=== PATIENT | female | born 1965 | race Caucasian/White ===

== ENCOUNTER 2023-12-30 22:34 | Emergency (ER) | payer OTHER, SELFPAY ==
[2023-12-30 22:38] VITALS: BP 166/93; PULSE 96; RESP 15; TEMP 37.7; O2SAT 97
--- NOTE | 2023-12-30 22:44 | ED.URI ---
HPI - URI/Sore Throat General Chief Complaint: Upper Respiratory Infection Stated Complaint: ear pain, eye pain, fever/chills, bodyaches Time Seen by Provider: 12/30/23 22:42 Source: patient Mode of arrival: ambulatory Limitations: no limitations History of Present Illness HPI Narrative: Angela is a 58-year-old female patient presenting to the emergency room today with complaints of ear discomfort, eye discomfort, fever, chills, nasal congestion, sore throat,and body aches. She reports that symptoms started this morning. Was sent home from work today due to her feeling ill. She thought that it may be just allergies. Denies any chest pain or shortness of breath. MD elicited complaint: sore throat and nasal congestion Related Data Allergies Allergy/AdvReac Type Severity Reaction Status Date / Time Sulfa (Sulfonamide Allergy Hives Verified 12/30/23 23:24 Antibiotics) acetaminophen [From Vicodin] AdvReac Hallucinati Verified 12/30/23 23:24 ng hydrocodone [From Vicodin] AdvReac Hallucinati Verified 12/30/23 23:24 ng Review of Systems Review of Systems: Pertinent positives per HPI. Patient denies any rash, headache, visual changes, dizziness, shortness of breath, chest pain, palpitations, nausea, vomiting, diarrhea, constipation, abdominal pain, or any urinary issues. PMFSH Comments At the time of my signature, I reviewed and agree with the nursing past medical, surgical, social, and family history. There is no relevant family history pertinent to the patient complaint. Exam Narrative: General: Well-developed, well nourished, in no apparent distress Head: Normocephalic, atraumatic Eyes: Pupils equally round and reactive to light bilaterally, EOM intact, sclera and conjunctive clear, no discharge, lids normal Ears: TMs intact and congested, ear canals clear, no drainage, grossly hearing normal. Nose: Nares patent, clear nasal discharge, no inflammation, no sinus tenderness. Mouth: Oral pharynx without lesions or masses, good dentition, MMM. Neck: Supple, trachea midline, no enlargement of anterior or posterior cervical nodes, no thyroid masses or goiter palpable. Cardio: Regular rate and rhythm, s1 and s2 normal, no murmur appreciated. Resp: Clear to auscultation bilaterally, no rhonchi, rales, wheezing or rubs Course Course Emergency Course: Portions of this record may have been created with voice recognition software. Vital Signs Vital signs: Vital Signs Temperature 37.7 C H 12/30/23 22:38 Pulse Rate 96 12/30/23 22:38 Respiratory Rate 15 12/30/23 22:38 Blood Pressure 166/93 H 12/30/23 22:38 Pulse Oximetry 97 12/30/23 22:38 Oxygen Delivery Room Air 12/30/23 22:38 Temperature 37.7 C H 12/30/23 22:38 Pulse Rate 96 12/30/23 22:38 Respiratory Rate 15 12/30/23 22:38 Blood Pressure 166/93 H 12/30/23 22:38 Pulse Oximetry 98 12/30/23 23:20 Oxygen Delivery Room Air 12/30/23 23:20 Vital signs reviewed MDM - URI/Sore Throat MDM Narrative Medical decision making narrative: At the time of visit patient is resting comfortably on the exam table. Patient appears to be nontoxic. Labs: COVID, influenza, RSV, and strep test were performed . COVID testing was positive. Flu RSV and strep were all negative. Plan: I suspect patient has COVID. Supportive measures were discussed with the patient and they voiced understanding discharge instructions and agrees to treatment plan. Return precautions reviewed Differential Diagnosis Differential diagnosis: Likely upper respiratory infection, otitis media, sinusitis, viral infection, bronchitis, influenza, pharyngitis and other ( COVID) Lab Data Labs: Lab Results 12/30/23 Range/Units 22:53 Influenza A (RT-PCR) Negative (Negative) Influenza B (RT-PCR) Negative (Negative) RSV (RT-PCR) Negative (Negative) SARS-CoV-2 RNA (RT-PCR) Positive A (Negative) Group A Strep (PCR) Not detected (N
[2023-12-30 23:20] VITALS: O2SAT 98
[2023-12-30 23:23] LABS: Strep Group A RT-PCR NOT DETECTED (Negative)
[2023-12-30 23:34] LABS: Influenza A QL RT-PCR Negative (Negative); Influenza B QL RT-PCR Negative (Negative); RSV RNA, RT-PCR Negative (Negative); SARS-CoV-2 RNA PCR Positive (Negative)
== END 2023-12-30 23:53 | disposition home or self-care (01) ==
LOC: ANHED 22:58
PROVIDERS: Emergency Provider Nurse Practitioner Family
DX: U07.1 COVID-19 (principal)
CPT/HCPCS: 87637; 87651; 99283

== ENCOUNTER 2024-12-04 17:53 | Emergency (ER) | payer OTHER, SELFPAY ==
--- NOTE | ~2024-12-04 | XR_ITS ---
XR hand RT 2V Ordering provider: Alexandra Puga APRN History: . pain,fall . Comparison: None. FINDINGS: BONES: Possible fracture in the base of the distal phalanx of the right thumb.. Osteopenia of the bon es. JOINT SPACES: Osteoarthritic changes of the first carpometacarpal joint. Osteoarthritic changes of th e first metacarpophalangeal and interphalangeal joint. SOFT TISSUES: Normal. IMPRESSION: Possible fracture in the base of the distal phalanx of the right thumb. Follow-up advised. Reviewed, dictated and finalized at location A. IMPRESSION: Possible fracture in the base of the distal phalanx of the right thumb. Follow- up advised.
--- NOTE | ~2024-12-04 | XR_ITS ---
XR wrist RT min 3V Ordering provider: Alexandra Puga APRN History: . pain, fall . Comparison: None. FINDINGS: BONES: No acute fracture or dislocation. No definite scaphoid fracture. JOINT SPACES: Osteoarthritic changes of the first carpometacarpal joint. Narrowing of the radiocarpal joint. SOFT TISSUES: Normal. IMPRESSION: No acute osseous abnormality right wrist. Reviewed, dictated and finalized at location A.
--- OUTSIDE RECORDS SUMMARY | 2024-12-04 17:55 | XMS_ITS | Data Portability ---
Author Organization [place] - [facility] Eduardo as, [email or web address]G_[facility] Address [address] [address] Assessment Encounter Date Assessment Date Assessment LastModified by Organization Details LastModified Time 12/21/2023 12/21/2023 Patient presents to the clinic today for follow-up of her bilateral Dupuytren's disease. I discussed the natural history and progression of her signs and symptoms. Based on the patient's physical exam and history, she has Dupuytren's disease of her palms. There are no flexor contractures present on exam today, so we discussed that she should continue to monitor her symptoms until they worsen or if she starts to develop a flexion contracture. We discussed that her ring finger on the left hand may have a mild trigger finger starting, but it is not that symptomatic for her at this time. She will follow-up as needed. All questions and concerns were addressed at this time. Patient is indicated agreement and understanding. 1) There are no flexor contractures present on exam today, so we discussed that she should continue to monitor her symptoms until they worsen or if she starts to develop a flexion contracture. We discussed that her ring finger on the left hand may have a mild trigger finger starting, but it is not that symptomatic for her at this time. 2) She will follow-up as needed. Comments: Advised patient to avoid painful activities as much as possible and to contact the office regarding any problems or concerns. Patient will proceed with the treatment plan as discussed and will continue to monitor symptoms. I answered all questions and the patient seems to understand all of this. [email or web address] Not available 12/21/2023 16:54:40 10/15/2024 10/15/2024 LEFT KNEE ADVANCED OSTEOARTHRITIS-- Patient reports chronic left knee pain that worsened in September 2024 with no specific injury. Patient has had her right knee replaced in November 2022. Patient takes ibuprofen and Meloxicam for the pain. On exam, patient has ROM from 0-135, medial joint line tenderness, crepitation. X-rays of the left knee reveals advanced osteoarthritis worst in the patellofemoral compartment with complete loss of the articular cartilage resulting in rrnq-no-qymi contact. We discussed treatment options including surgical intervention and nonoperative management such as anti-inflammatori es, modification of activities, therapy, and injection. At this time, I will submit for authorization of Zilretta for the left knee. The patient agrees with the current treatment plan and will contact the office with any questions or concerns that may arise. Patient will follow-up after authorization for Zilretta. [email or web address] Not available 10/15/2024 17:50:34 10/17/2024 10/17/2024 LEFT KNEE DEGENERATIVE JOINT DISEASE / ZILRETTA INJECTION - The patient returns to the clinic remaining symptomatic. Today the patient received a Zilretta injection. The injection was tolerated well and there were no complications. Treatment options were reviewed with the patient at this time. The patient will continue a home exercise program focusing on quadriceps and hip abductor strengthening while avoiding aggravating activity. All the patient's questions were answered and they agree with the treatment plan. The patient will follow up as needed. [email or web address] Not available 10/16/2024 16:51:19 Plan of Treatment Reminders Order Date Submit Date Provider Last Modified By Organization Details Last Modified Time Details Appointments None recorded. Lab None recorded. Referral None recorded. Procedures None recorded. Surgeries None recorded. Imaging XR, knee, 3 view 2024 025 [email or web address] [facility] (Centralized Scheduling Use For All Imaging Orders), [address], [address], [place], [address], 16:23:26 XR, foot, 3 or more view 2024 025 [email or web address] [facility] (Centralized Scheduling Use For All Imaging Orders), [address], [address], [place], [address], 11:19:12 Medication Orders Zilretta 32 mg intra-art icular suspensio n,extende d release 2024 025 [email or web address] [id number], [address], [place], [address], 12:05:35 Patient TargetsNo targets recorded. Patient Instructions Encounter Date Encounter Id Patient Instructions Last Modified By Organization Details Last Modified Time 08/31/2023 [id number] Partial tear of LT ligament with improved symptoms. Will continue velcro wrist brace at night and with heavy activity only. Continue to use wrist and hand in brace for lifting, pushing or pulling. OT consult submitted. Cleared for work with restrictions noted in release letter. All questions answered. Contact the office for any other questions or concerns. Continue with activity as tolerated. Follow up 4 weeks for repeat exam and treatment evaluation. [email or web address] Not available 08/31/2023 11:11:17 07/04/2024 [id number] Non displaced proximal phalanx fracture of 5th toe. Continue foot wear modifications as tolerated. WBAT. Cleared for ADLs. RICE regimen reviewed. All questions answered. Contact the office for any other questions or concerns. Continue with activity as tolerated. Follow up 2-3 weeks prn for fracture f/u. [email or web address] Not available 07/04/2024 11:15:44 Reason for Referral None Reported. Results Created Date Observation Date Name Description Value Unit Range Abnormal Flag Note LastModifiedBy Organization Detail LastModifiedTime 07/04/19 25 07/04/2024 XR, foot, 3 or more view XR Foot 3V Right - InOffi ce HISTOR Y: M79.67 1,Pain in right foot PRIORS : None availa ble FINDIN GS: There is some first MTP joint space narrow ing and spurri ng. Enthes ophyte seen at the base of the fifth metata rsal. Small os perone um is presen t. Planta r assembler leather goods ior calcan eal enthes ophyte s are seen. IMPRES VON: As above. Electr onical ly Signed By: David mina MD, DABR on 025 9:46 AM ORDERI NG PROVID ER: MANNY Charles WSN: [id number] [email or web address] [facility] [address] , [place], [address], 07/04/2024 10:50:28 10/16/19 25 10/15/2024 XR, knee, 3 view XR Knee Left 3V - InOffi ce HISTOR Y: M25.56 2,Pain in left knee PRIORS : None availa ble FINDIN GS: Multip le osteop hytes are presen t. There is narrow ing of the patell ofemor al and medial compar tments . These findin gs are consis tent with osteoa rthrit is. There is a superi or patell ar enthes ophyte . Patell a bursal effusi on may be presen t. IMPRES VON: As above. Electr onical ly Signed By: David mina MD, DABR on 025 4:35 PM ORDERI NG PROVID ER: CONSTANTINE ALVARENGA WSN: [id number] [email or web address] [facility] [address] , [place], [address], 10/15/2024 17:41:40 Result Notes Documentation Provider Name and Address Organization Details Recorded Time Xr, Foot, 3 Or More View : XR Foot 3V Right - InOffice HISTORY: M79.671,Pain in right foot PRIORS: None available FINDINGS: There is some first MTP joint space narrowing and spurring. Enthesophyte seen at the base of the fifth metatarsal. Small os peroneum is present. Plantar posterior calcaneal enthesophytes are seen. IMPRESSION: As above. RING PROVIDER: MANNY FERNANDEZ WSN: [id number] Nadine Shaikh [facility], [place] - [facility] [place] 07/04/2024 10:50:29 Xr, Knee, 3 View : XR Knee Left 3V - InOffice HISTORY: M25.562,Pain in left knee PRIORS: None available FINDINGS: Multiple osteophytes are present. There is narrowing of the patellofemoral and medial compartments. These findings are consistent with osteoarthritis. There is a superior patellar enthesophyte. Patella bursal effusion may be present. IMPRESSION: As above. RING PROVIDER: SHELTON DANIELS WSN: [id number] [facility], [facility] 10/15/2024 17:41:40 Problems Name Problem SNOMED Code Status Onset Date Resolution Date Notes Provider Name and Address Organization Details Recorded Time Lumbar radiculop athy 932321053 Active 2021 GEORGE Chand [address] [place] [address], Suite [facility], [place], [place], [address] [place] [address], [facility] 2 14:21:54 Lumbar spondylol isthesis 741837259576 102 Active 2021 GEORGE Chand [address] [place] [address], Suite [facility], [place], [place], [address] [place] [address], [facility] 2 14:22:28 Idiopathi c periphera l neuropath y 32212330 Active 2021 GEORGE Chand [address] [place] [address], Suite [facility] [place] [address], [facility] 2 14:22:45 Osteoarth ritis of right knee joint 939502900403 100 Active 2022 Sy Noriega null, [facility] 3 12:27:46 Osteoarth ritis of right hip joint 396988180302 107 Active 2022 Sy Noriega null, [facility] 3 13:02:45 Pain of left wrist 581965672353 102 Active 2022 Manny Fernandez MD [address] [facility], [address] [place], [place], [address] [place] [address], [facility] - [facility] 3 15:33:01 Contusion of left wrist 241171862789 32375 Active 2022 Manny Fernandez MD [address] [facility], [address], [place], [address], [facility] 3 15:33:02 Sprain of left wrist 811045675461 97672 Active 2022 Manny Fernandez MD [address] [facility], [address], [place], [address], [facility] 3 15:33:04 Dupuytren 's disease of palm 716630843 Active 2023 RYLEY NEGRON PA-C [address] [facility], [address], [place], [address], [facility] 4 16:54:55 Pain in right foot 489884769054 107 Active 2024 Manny Fernandez MD [address] [place] [address], [address], [place], [address], [facility] 5 11:14:32 Fracture of phalanx of foot 51618359 Active 2024 Manny Fernandez MD [address] [place] [address], [address], [place], [address], [facility] 5 11:14:33 Problem Notes None recorded. Procedures Surgical History Date Name Laterality Status Provider Name and Address Organization Details Recorded Time 5 Zilretta steroid injection completed Joyce Mcneil [facility] 10/17/2024 11:35:27 3 MV - Steroid Injection Knee completed Sy Noriega [facility] 06/28/2022 12:39:32 2 Iris - Hand Trigger Finger Steroid Injection completed Olena Adams [facility] 09/03/2021 12:07:14 Imaging Results None recorded. Procedure Notes None recorded. Medical Equipment None Reported. Allergies Allergen ID Allergen Name Allergen Category Reaction Reaction Severity Criticality Documentation Date Start Date Code Code System Note Provider Name and Address Organization Details Recorded Time 797242 Substance with sulfonami de structure and antibacte rial mechanism of action (substanc e) medicatio n Not available Not available Not available 09/02/2021 31722 8003 SNOMED Sabrina ohara, [facility] 2 11:08:03 764718 acetamino phen / hydrocodo ne medicatio n Not available Not available Not available 09/02/2021 15333 2 RxNorm Sabrina ohara, [facility] 2 11:08:09 259288 Dilaudid medicatio n Not available Not available Not available 09/02/2021 04519 3 RxNorm Sabrina ohara, [facility] [place] 2 11:08:18 748470 morphine medicatio n nausea Not available Not available 04/27/2023 7052 RxNorm Not Available winton - External Data Service - prod 3 19:00:33 Medications Name Sig Start Date Stop Date Status Note LastModified by Organization Details LastModified Time fluoxetine 40 mg capsule TAKE 1 CAPSULE BY MOUTH EVERY DAY active Not Available Not Available No t Available lamotrigine 200 mg tablet TAKE 1 AND A HALF TABLETS BY MOUTH EVERY DAY active Not Available Not Available No t Available hydrocodone 5 mg-acetamino phen 325 mg tablet take 1-2 tablets po q 8 hours prn moderate to severe pain 2022 active Not Available Not Available Not Avai lable meloxicam 15 mg tablet TAKE 1 TABLET BY MOUTH EVERY DAY WITH A MEAL active Not Available Not Available No t Available promethazine 12.5 mg tablet TAKE 1 TABLET BY MOUTH EVERY 6 HOURS NEEDED FOR NAUSEA/ VOMITING active Not Available Not Available No t Available metoprolol succinate ER 100 mg tablet,exten ded release 24 hr TAKE 1 TABLET BY MOUTH EVERY DAY active Not Available Not Available No t Available prednisone 5 mg tablet TAKE 1 TABLET BY MOUTH EVERY DAY active Not Available Not Available No t Available hydrocodone 10 mg-acetamino phen 325 mg tablet TAKE 1 (ONE) TABLET EVERY FOUR TO SIX HOURS NEEDED active Not Available Not Available No t Available oxycodone-ac etaminophen 5 mg-325 mg tablet take 1 - 1.5 tablets po q 4-6 hours as needed for moderate to severe pain 2022 active Not Available Not Available Not Avai lable potassium chloride ER 20 mEq tablet,exten ded release(part /cryst) TAKE 1 TABLET BY MOUTH EVERY DAY active Not Available Not Available No t Available aspirin 325 mg tablet,delay ed release TAKE 1 TABLET BY MOUTH EVERY DAY DIRECTED FOR 14 DAYS active Not Available Not Available Not Available oxycodone-ac etaminophen 10 mg-325 mg tablet TAKE HALF - 1 TAB BY MOUTH EVERY 4-6 HOURS NEEDED FOR MODERATE TO SEVERE PAIN active Not Available Not Available Not Available hydrocodone 7.5 mg-acetamino phen 325 mg tablet TAKE 1 TABLET BY MOUTH EVERY 6 HOURS active Not Available Not Available No t Available dexamethason e 4 mg tablet TAKE 1 TABLET BY MOUTH EVERY 12 HOURS WITH FOOD active Not Available Not Available No t Available docusate sodium 100 mg capsule TAKE 1 CAPSULE BY MOUTH TWICE A DAY NEEDED active Not Available Not Available No t Available gabapentin 300 mg capsule TAKE 1 CAPSULE BY MOUTH TWICE A DAY DIRECTED FOR 7 DAYS active Not Available Not Available N ot Available methylpredni solone 4 mg tablets in a dose pack TAKE 6 TABLETS ON DAY 1 DIRECTED ON PACKAGE AND DECREASE BY 1 TAB EACH DAY FOR A TOTAL OF 6 DAYS active Not Available Not Available No t Available fluoxetine 20 mg capsule TAKE 1 CAPSULE BY MOUTH EVERY DAY active Not Available Not Available No t Available rosuvastatin 10 mg tablet TAKE 1 TABLET BY MOUTH EVERY DAY FOR 30 DAYS active Not Available Not Available No t Available Euflexxa 10 mg/mL (mw 2.4-3.6 million) intra-articu lar syringe Inject 2 mL by intra-artic ular route for 35 days. 2022 active Not Available Not Available Not Avai lable hydrochlorot hiazide 12.5 mg tablet TAKE 1 TABLET BY MOUTH EVERY DAY IN THE MORNING active Not Available Not Available No t Available Gelsyn-3 16.8 mg/2 mL intra-articu lar syringe Inject 2 mL by intra-artic ular route for 21 days. active Not Available Not Available No t Available Zilretta 32 mg intra-articu lar suspension,e xtended release Take 32 mg by intraarticu lar route. 2024 active Not Available Not Available Not Kandi labcan Kenalog-40 40 mg/mL suspension for injection Take 1 mL by injection route. 2021 active Not Available Not Available Not Avradha nichole Vitals Date Recorded Body height Body mass index (BMI) Body weight Provider Name and Address Organization Details Last Updated DateTime 10/15/2024 176 cm 34.9 kg/m2 654069 g Jenn Abdullahi [place] - [facility] [place] 10/15/2024 17:24:03 Social History Question Answer Notes LastModified by Organizat ion Details LastModified Time Have You Had A Fever And/or Symptoms Of A Lower Respiratory Illness (cough, Difficulty Breathing, Etc)? No [email or web address] Information not available 06/23/2022 Have You Had A COVID-19 Vaccine In The Last 7 Days? No [email or web address] Information not available 06/23/2022 Have You Had Any Of These Symptoms: Chills, Headache, Fatigue, Muscle Or Body Aches, Sore Throat, New Loss Of Taste Or Smell, Nausea Or Vomiting, Or Diarrhea? No [email or web address] Information not available 06/23/2022 In The Past 10 Days, Have You Been Told You May Have COVID-19 Or Have Been Tested For COVID-19? No [email or web address] Information not available 06/23/2022 0. Information Provided By : Patient [email or web address] Information not available 04/28/2023 1a) Does The Patient/Caregiver/F amily Report The PATIENT Having Any Of These NEW Symptoms Such As Cough? No [email or web address] Information not available 04/28/2023 1b) Does The Patient/Caregiver/F amily Report The PATIENT Having Any Of These NEW Symptoms Such As Diarrhea? No API-27 Information not available 04/28/2023 1c) Does The Patient/Caregiver/F amily Report The PATIENT Having Any Of These NEW Symptoms Such As Fever/chills? No API-27 Information not available 04/28/2023 1d) Does The Patient/Caregiver/F amily Report The PATIENT Having Any Of These NEW Symptoms Such As Nasal Congestion/Runny Nose? No API-27 Information not available 04/28/2023 1e) Does The Patient/Caregiver/F amily Report The PATIENT Having Any Of These NEW Symptoms Such As Respiratory Distress (acute)? No API-27 Information no t available 04/28/2023 1f) Does The Patient/Caregiver/F amily Report The PATIENT Having Any Of These NEW Symptoms Such As Rash? No API-27 Information not available 04/28/2023 1g) Does The Patient/Caregiver/F amily Report The PATIENT Having Any OTHER NEW Symptoms (list)? If No NEW Symptoms, Enter No No [email or web address] Information not available 04/28/2023 What Is Your Relationship Status? [email or web address] Information not available 08/14/2023 Sex: Female Functional Status None recorded. Mental Status None recorded. Family History Nothing Reported. Medical History Condition Response arthritis Y psychiatric illness Y high blood pressure Y Gynecological HistoryNo gynecological history recorded. Obstetrics History GPAL:G 0 P 0 0 0 0 Past Encounters Encounter ID Performer Location Encounter Start Date Encounter Closed Date Diagnosis/Indication Diagnosis SNOMED-CT Code Diagnosis ICD10 Code Diagnosis Note [id number] Arben Simmons MD [facility] [address] [place] [address] 09/02/2021 10:45:03 09/02/2021 12:27:29 Pain in right hand [id number] 47247 M79.641 Ganglion c yst of right hand 2985192197 21570 M67.411 [id number] Yuriy Elvie GREGG [facility] [address] [place] [address] 10/13/2021 11:22:13 10/13/2021 12:18:32 Lumbar radiculopathy 732650566 M54.16 I independlakshmi gentile reviewed the pertinent images today from the xray. Posterior / posterolat eral lumbar arthrodesi s at L2-5 using an allograft. Fixation was accomplish ed with pedicle screws and rods bilaterall y. Decompress francesco Laminectom y at L2, L3, L4, L5. Date of procedure: 10/07/2020 at [facility]. She complains of continued low back pain and poor balance. Continue PT for conditioni ng, gait training and balance. Follow up as needed. Lumbar spondylolisthesis 7903981529 40202 M43.16 I independlakshmi gentile reviewed the pertinent images today from the xray. Posterior / posterolat eral lumbar arthrodesi s at L2-5 using an allograft. Fixation was accomplish ed with pedicle screws and rods bilaterall y. Decompress francesco Laminectom y at L2, L3, L4, L5. Date of procedure: 10/07/2020 at [facility]. She complains of continued low back pain and poor balance. Continue PT for conditioni ng, gait training and balance. Follow up as needed. Idiopathic peripheral neuropathy 82093030 G60.9 [id number] Arben Simmons MD [facility] [address] [place] [address] 10/14/2021 11:12:40 10/14/2021 11:34:42 Pain in right hand 0699941197 61850 M79.641 Ganglion c yst of right hand 1185198456 76218 M67.996 [id number] Shelton Daniels MD [facility] [address] [facility] [place] [address] 06/28/2022 10:42:04 06/28/2022 12:24:55 Pain of right knee joint 0751637794 85759 M25.561 Pain of ri ght hip joint 6193981775 74995 M25.551 Osteoarthr itis of right knee joint 6751608504 89015 M17.11 Osteoarthr itis of right hip joint 0019150810 00694 M16.11 [id number] Arben Simmons MD [facility] [address] [place] [address] 06/23/2022 15:17:33 06/23/2022 15:54:38 Pain in right hand 1121013711 09114 M79.641 Ganglion c yst of right hand 6026120800 19588 M67.441 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 3922743761 2781972 M19.041 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 2823430689 99650 M20.021 [id number] Arben Simmons MD [facility] [address] [place] [address] 08/17/2022 16:05:33 08/17/2022 16:39:51 Pain in right hand 7876885478 54631 M79.641 Ganglion c yst of right hand 0255516655 78238 M67.441 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 9630194018 7144375 M19.041 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 3420541032 26280 M20.021 [id number] Shelton Daniels MD [facility] [address] [address] 10/04/2022 11:47:04 10/04/2022 12:47:02 Pain of right knee joint 4082864061 17458 M25.561 Osteoarthr itis of right knee joint 4083852187 18419 M17.11 [id number] Shelton Daniels MD [facility] [address] [address] 11/16/2022 13:48:05 11/16/2022 15:30:47 History of right total knee replacement 5527060965 649176 Z96.651 Pain of ri ght knee joint 2303954701 04881 M25.561 Osteoarthr itis of right knee joint 5819406811 25575 M17.11 [id number] Shelton Daniels MD [facility] [address] [place] [address] 12/16/2022 14:36:04 12/16/2022 15:42:18 History of right total knee replacement 0038781689 075835 Z96.651 Pain of ri ght knee joint 0297431009 32226 M25.561 Osteoarthr itis of right knee joint 3335918809 32328 M17.11 [id number] Shelton Daniels MD [facility] [address] [facility] [place] [address] 01/27/2023 14:23:43 01/27/2023 15:07:47 Pain of right knee joint 2387511331 70816 M25.561 History of right total knee replacement 1642898487 341980 Z96.651 Osteoarthr itis of right knee joint 7907016382 66042 M17.11 [id number] Shelton Daniels MD [facility] [address] [place] [address] 04/28/2023 10:18:02 04/28/2023 11:34:33 Osteoarthritis of right knee joint 3420586207 44636 M17.11 Pain of ri ght knee joint 2805858555 35040 M25.561 History of right total knee replacement 8152143953 488879 Z96.651 [id number] Manny Fernandez MD [facility] [address] [place] [address] 05/22/2023 14:43:20 05/22/2023 15:07:13 Pain of left wrist 2365598398 74090 M25.532 Contusion of left wrist 5450382585 0732804 S60.212A Sprain of left wrist 353 6979904 9136409 S63.522A [id number] Manny Fernandez MD [facility] [address] [facility] [place] [address] 05/25/2023 11:01:20 05/25/2023 11:09:53 Contusion of left wrist 1763204189 3211151 S60.212D Sprain of left wrist 708 3218595 6018724 S63.522D Pain of left wrist 20013 89713 42359 M25.532 [id number] Manny Fernandez MD [facility] [address] [facility] [place] [address] 07/13/2023 11:42:57 07/13/2023 12:04:30 Sprain of left wrist 1153729978 5799411 S63.522D Pain of left wrist 31871 04038 62755 M25.532 Contusion of left wrist 4222034593 3846041 S60.212D [id number] Manny Fernandez MD [facility] [address] [facility] [place] [address] 08/14/2023 11:03:55 08/14/2023 12:31:35 Sprain of left wrist 5113034971 6689868 S63.522D Pain of left wrist 16763 76324 17003 M25.532 Contusion of left wrist 7271436790 6798191 S60.212D [id number] Manny Fernandez MD [facility] [address] [facility] [place] [address] 08/31/2023 10:04:50 08/31/2023 10:30:57 Contusion of left wrist 8735543812 9017315 S60.212D Sprain of left wrist 762 3342748 3226341 S63.522D Pain of left wrist 97807 59362 50473 M25.532 [id number] Arben Simmons MD [facility] [address] [place] [address] 12/21/2023 09:37:20 12/21/2023 11:36:16 Dupuytren's disease of palm 261660333 M72.0 [id number] Manny Fernandez MD [facility] [address] [place] [address] 07/04/2024 09:31:01 07/04/2024 10:45:33 Pain in right foot [id number] 31484 M79.671 non displaced proximal phalanx fracture of 5th toe Fracture o f phalanx of foot [id number] S92.514A [id number] Shelton Daniels MD [facility] [address] [place] [address] 10/15/2024 16:45:53 10/15/2024 17:53:19 Pain of left knee region [id number] 70476 M25.562 Osteoarthr itis of left knee joint [id number] 03229 M17.12 [id number] Shelton Daniels MD [facility] [address] [facility] [place] [address] 10/17/2024 10:33:22 10/17/2024 12:11:45 Pain of left knee region [id number] 62376 M25.562 Osteoarthr itis of left knee joint [id number] 44058 M17.12 Health Concerns Section Related Observation LastModified by Organization Detai ls LastModified Time None Recorded Concern Status LastModified by Organization Details LastModified Time None Recorded Advance Directives Directive None Recorded Payers Insurance Date Sequence Insurance Name Policy Number Policy Croft Covered Member ID Croft Member ID Guarantor Name 08/30/2023 2 [facility] Angela Lemon erwright [id number] Angela varner 10/16/2024 1 [facility] [id number] Angela Brooksid erwright [id number] Angela varner 08/17/2023 2 [employer] (O) Angela Lemon erwright [id number] Angela varner 07/10/2023 2 [facility] (O) Angela Lemon erwright [id number] Angela varner 08/18/2023 1 [facility] Angela Lemon erwright [id number] Angela varner 08/17/2023 2 [facility] Angela Lemon erwright [id number] Angela varner 07/12/2023 1 [employer] (POS II) [id number] John Varner [id number] Angela varner Notes Date Note Type Note Provider Name and Address Organization Details Recorded Time 4 text/html Patient is a 58 year old female who presents for an evaluation of the left wrist. She initially developed pain on 05/08/23 after she fell and landed her wrist on the [place]. Since the previous visit, she reports significant improvement in symptoms. Patient continues to report pain while holding her ipad. She has been doing the exercises with 1-2lb weights with good relief. Patient continues to wear the velcro wrist brace while sleeping at night. Patient would like to have a note for her return to work status. Patient presents to clinic FWB with use of a cane. Manny Fernandez MD [address] [place] [address], [address], [place], [address], [facility] 08/31/2023 11:11:45 4 text/html Patient presents to clinic today with bilateral ring finger pain. Patient states that pain has improved slightly since her last visit. She mostly complains of a new dupuytren's nodule at the right hand and to the left hand. Mild pain to the left ring finger without locking near the dupuytren's nodule. Patient denies any numbness or tingling. Patient denies any fever or chills. Denies numbness and tingling. Patient began having right ring finger pain on 06/14/2021 with no known injury. Since the last office visit patient states she is having increased swelling along her right ring PIP joint. She is unable to wear her mothers wedding ring. She notes decreased pain from the Prednisone and decreased swelling in the past from injection. She is wanting to discuss options. RYLEY NEGRON PA-C [address] [facility], [address], [place], [address], [facility] 12/21/2023 16:55:40 5 text/html Patient is a 59 year old male who presents for an evaluation of the right foot. She initially developed pain on 07/02/24 after she stepped over her dog but her toe/foot got caught in a fan. Pain is located along the 4th and 5th toes that radiates into the MTP joints. Patient notes slight bruising and swelling. Previous treatments include RICE. No prior imaging. Patient presents to clinic FWB with use of a cane. Manny Fernandez MD [address] [place] [address], [address], [place], [address], [facility] 07/04/2024 11:16:04 5 text/html Ms. Marine Varner is a 59 year old female who comes in with a new complaint of left knee pain. She has had chronic pain but it became worse in September 2024 with no injury. No radiating pain. She rates her pain today as a 1/10 and describes it as aching, stabbing or burning with popping, buckling, locking, tenderness and instability. Pain increases with standing and bending. She had prior multiple arthroscopic surgeries of the left knee. She uses a cane and a brace. She has tried elevation, massage, rest, meloxicam and ibuprofen. No history of DVT. She has had no imaging of the left knee. Shelton Daniels MD [address] [place] [address], [address], [place], [address], [facility] 10/24/2024 00:01:23 5 text/html Ms. Tristan is a 59 year old female who follows up for left knee pain and osteoarthritis. She comes in for an injection of Zilretta to the left knee today. Since the last visit, she notes no changes. She wishes to proceed.Our office supplied the Zilretta. GEORGE Chand [address] [facility], [address], [place], [address], [facility] 10/17/2024 12:09:28 OBGyn Episode No OBEpisode recorded.
--- OUTSIDE RECORDS SUMMARY | 2024-12-04 17:55 | XMS_ITS | Patient Health Record ---
Author Organization [facility] Billing Info Address [address] [place] [id number] Care Team Providers Care Property Man Name Role Phone LAN VILLANUEVA Primary Care Provider Allergies Allergen (clinical drug ingredient) Drug/Non Drug Allergy documented on EMR Reaction Allergy Type Onset Date Status morphine Morphine Sulfate nausea Drug Allergy Active Sulfamethoxazole rash Drug Allergy Active Vicodin dizziness Drug Allergy Active Reason For Referral No Information Medications Medication SIG (Take, Route, Frequency, Duration) Notes Start Date End Date Status Rosuvastatin Calcium 10 MG TAKE 1 TABLET BY MOUTH EVERY DAY for 30 day(s) needs appt Active Meloxicam 15 MG 1 tablet Orally Once a day Active Prozac 10 MG 1 capsule Orally Once a day Active Metoprolol Succinate ER 100 MG TAKE 1 TABLET BY MOUTH EVERY DAY for 90 Active Hydrochlorothiazide 12.5 MG TAKE 1 TABLE T BY MOUTH EVERY DAY IN THE MORNING for 30 days needs appt Active Lamictal 150 MG 1 tablet Orally Twice a day Active Maru Allergy 180 MG 1 tablet as neede d Orally Once a day Active Ambien 5 MG 1 tablet at bedtime Orally Once a day for 90 days prn 06/25/2018 Active Immunizations Vaccine Route Administration Date Status Comme nts zCOVID-19 (Yee) 18+yrs, NO PRES Unknown 09/07/2020 Administered zFLU 4V (FLUZONE QUAD), 6MO+ (0.5 ML), NO PRES - ALL PAYORS IM Intramuscular 04/15/2019 Administered Social History Tobacco Use: Social History Observation Description Date Details (start date - stop date) Former Smoker NA - NA Tobacco Status: Question Answer Notes Patient is a former smoker smoked 2-3 years , quit 1989 Problems Problem Type SNOMED Code ICD Code Onset Dates Problem Status W/U Status Risk Notes Problem Hyperlipidemia (99536315) Hyperlipidemia (E78.5) Active confirmed Problem Hypertension (34381263) HTN (hypertension) (I10) Active confirmed Problem Coronary artery disease (95733842) CAD (coronary artery disease) (I25.10) Active confirmed Problem Mood disorder (40738860) Mood disorder (F39) Active confirmed Plan Of Treatment Pending Test Test Name Order Date GLUCOSE(Q-483) 04/15/2019 GLUCOSE(Q-483) 08/10/2020 Insurance Providers Payer Name Payer Address Payer Phone Subscriber Number Group Number Insured Name Patient Relationship to Insured Coverage Start Date Coverage End Date [employer] NON HMO [address] [place], [place] [id number] John Varner Spouse - patient is the spouse of the insured Medical (General) History Medical History History ICD Code bipolar Surgical History Surgery Date(Month/Year) tubal ligation and scope of right should er 01/1999 plantar fascia release 12/1999 present-various cortisone epidurals to L 4-L5 2000 gastric lapband 08/2002 breast reduction 10/2003 scope of left knee 09/2004 hysterectomy, left ovary removal 08/2005 scope of both knees 04/2006 removal of right ovary 2006 scope of right hip-torn labrum 11/2008 Left wrist surgery 07/2018 rods and pins placed L2-L5 10/2020 Hospitalization History Reason Date(Month/Year) scope of right shoulder-torn labrum 12/04 011 12/2011 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
[2024-12-04 18:11] VITALS: BP 146/81; PULSE 66; RESP 17; TEMP 36.2; O2SAT 99
--- NOTE | 2024-12-04 18:24 | ED_ITS ---
HPI - General Adult General Chief complaint: Extremity Injury, Upper Stated complaint: RT Wrist Pain History of Present Illness HPI narrative: Angela Hawthorne is a 59 y/o Female who presents today with complaints having a mechanical ground level fall yesterday falling on to her right wrist. She states that since the fall yesterday she has had some continued pain to her right wrist and hand that seems to get better with ibuprofen but comes back with ibuprofen wears off. She denies hitting her head denies any LOC she had this fall at her grandson's baseball game and the people around her did help her get back up and she does baseline walk with a cane. She denies pain anywhere else on her body. Related Data Home Medications ?Medication ?Instructions ?Recorded ?Confirmed ?Last Taken ?Type No Home Medications 12/04/24 Unknown History Allergies Allergy/AdvReac Type Severity Reaction Status Date / Time Sulfa (Sulfonamide Allergy Hives Verified 12/04/24 18:10 Antibiotics) acetaminophen (From Vicodin) AdvReac Hallucinati Verified 12/04/24 18:10 ng hydrocodone (From Vicodin) AdvReac Hallucinati Verified 12/04/24 18:10 ng Review of Systems Review of Systems: All systems reviewed & are unremarkable except as noted in HPI and below Exam Narrative: GENERAL: Well-appearing, well-nourished, and in no acute distress. HEAD: Normocephalic, atraumatic. EYES: PERRLA and EOMI. ENT: Nares clear, no rhinorrhea or epistaxis. Mucous membranes moist. Oropharynx without tonsillar hypertrophy exudate or other lesions. NECK: Supple. No adenopathy or masses. No carotid bruits or JVD CHEST: Clear to auscultation. No respiratory distress. No wheezes rales or rhonchi HEART: Regular rate and rhythm. No murmur heard. Normal peripheral pulses. ABDOMEN: Soft, nontender, nondistended, normal active bowel sounds. EXTREMITIES: Normal range of motion. Right wrist noted to have some mild swelling to the right lateral aspect of the wrist , reproducible pain with palpation to the right lateral wrist and the right proximal fifth metacarple with palpation, No snuff box tenderness , strong pulses, neurovascular intact SKIN: Warm, dry, no rash. NEURO: No focal deficits. Alert and oriented x3. PSYCH: Normal mood and affect. Course Course Level of Care: Express Care Visit Vital Signs Vital signs: Vital Signs Temperature 36.2 C L 12/04/24 18:11 Pulse Rate 66 12/04/24 18:11 Respiratory Rate 17 12/04/24 18:11 Blood Pressure 146/81 H 12/04/24 18:11 Pulse Oximetry 99 12/04/24 18:11 Oxygen Delivery Room Air 12/04/24 18:11 Temperature 36.2 C L 12/04/24 18:11 Pulse Rate 66 12/04/24 18:11 Respiratory Rate 17 12/04/24 18:11 Blood Pressure 146/81 H 12/04/24 18:11 Pulse Oximetry 99 12/04/24 18:11 Oxygen Delivery Room Air 12/04/24 18:11 Medical Decision Making MDM Narrative Medical decision making narrative: 59 year female who presents with complaints of pain to her right wrist and hand after a mechanical ground level fall yesterday. Denies hitting her head, she is not on blood thinners,no LOC Normal range of motion. Right wrist noted to have some mild swelling to the right lateral aspect , reproducible pain with palpation to the right lateral wrist and the right proximal fifth metacarpal , No snuff box tenderness , strong pulses, neurovascular intact plan to check and XR : XR hand: Possible fracture in the base of the distal phalanx of the right thumb. Follow-up advised. XR wrist : No acute osseous abnormality right wrist. X-ray of wrist is negative for acute fractures the x-ray of the hand is negative for acute fractures were she is having pain at it mentions a spot of her distal right thumb however she is not having pain here it is likely arthritic changes but will have her follow-up with her primary care doctor recheck regarding this. Plan to place her in Magdy wrap have her do jones therapy follow-up with PCP and return for any worsening or concerning symptoms. Medical Records Medical records reviewed: Yes I reviewed the external patient's medical records. Vital Signs Vital Signs: Vital Signs Temperature 36.2 C L 12/04/24 18:11 Pulse Rate 66 12/04/24 18:11 Respiratory Rate 17 12/04/24 18:11 Blood Pressure 146/81 H 12/04/24 18:11 Pulse Oximetry 99 12/04/24 18:11 Oxygen Delivery Room Air 12/04/24 18:11 Temperature 36.2 C L 12/04/24 18:11 Pulse Rate 66 12/04/24 18:11 Respiratory Rate 17 12/04/24 18:11 Blood Pressure 146/81 H 12/04/24 18:11 Pulse Oximetry 99 12/04/24 18:11 Oxygen Delivery Room Air 12/04/24 18:11 Vitals reviewed by me Imaging Data Radiologist's impression: Impressions Hand X-Ray 12/04/24 18:50 IMPRESSION: Possible fracture in the base of the distal phalanx of the right thumb. Follow- up advised. Wrist X-Ray 12/04/24 18:54 IMPRESSION: No acute osseous abnormality right wrist. Discharge Plan Discharge Clinical Impression: Contusion of right wrist Qualifiers: Encounter type: initial encounter Qualified Code(s): S60.211A - Contusion of right wrist, initial encounter Patient Disposition: Home Condition: Stable Instructions: Antibiotic Form Additional Instructions: Continue to wear the magdy wrap Elevate and Ice for 20 minutes at a time Rest your wrist for at least 1 week Follow up with your PCP in 1 week to make sure this is improving If you develop any worsening symptoms or concerns return or proceed to the ER Patient Language: Hebrew Prescriptions: No Action No Home Medications Follow-up/Referrals: UNKNOWN,DOCTOR [Primary Care Provider] - Time of Disposition:
== END 2024-12-04 19:25 | disposition home or self-care (01) ==
PROVIDERS: Emergency Provider Nurse Practitioner Family
DX: S60.211A Contusion of right wrist, initial encounter (principal); W19.XXXA Unspecified fall, initial encounter
CPT/HCPCS: 73110; 73120; 99213; G0463

== ENCOUNTER 2025-02-15 15:13 | Emergency (ER) | payer OTHER, SELFPAY ==
--- OUTSIDE RECORDS SUMMARY | 2021-10-01 06:40 | XMS_ITS | Continuity of Care Document ---
Author Organization [facility] [place] Address [address] [place] [address] Phone Care Team Providers Care Curtain Supervisor Name Role Phone No Information Unavailable Unavailable Allergies, Adverse Reactions, Alerts Substance Reaction Status Criticality HYDROMORPHONE HCL Active No Informa tion morphine Active No Information acetaminophen Active No Information HYDROCODONE BITARTRATE Active No In formation Sulfa (Sulfonamide Antibiotics) Active No Information Medications Medication Instructions Dosage Effective Dates (start - stop) Status Comments cefuroxime axetil 500 mg tablet take 1 tablet by oral route every 12 hours 500 MG - Active LAMICTAL (unknown strength) take 1 tablet by oral route 2 times every day Not Available - Active PROZAC (unknown strength) take 1 capsule by oral route every day in the morning Not Available - Active ZYRTEC (unknown strength) Not Available - Active MELOXICAM (unknown strength) Not Available - Active FLUTICASONE PROPIONATE (unknown strength) Not Available - Active metoprolol succ 25 mg-hydrochlorothiaz vasile 12.5 mg tablet,ext.rel 24 hr take 1 tablet by oral route every day - Active Procedures Procedure Date Flu Rapid Immunoas; Flu Rapid Immunoas; Offic/outpt E&m [facility] Mod-pr 2 17 Offic/outpt E[facility]m [facility] [place] 7 Service(s) provided in the office during regularly Offic/outpt E&m Estab Mod-pr 2 13 Services provided in an urgent care cent er Offic/outpt E&m Estab Mod-hi 2 13 Services provided in an urgent care [facility] er Offic/outpt E&m New Mod Sever 1 Service(s) provided in the office during regularly Services provided in an urgent care [facility] er Advance Directives Directive Yes / No Effective Date File Name No Information Encounters Encounter Description Practice Location Reason(s) For Visit Diagnoses Date Provider Providers Copied on Encounter [facility] [place], [address], [place], [place], [id number] , [place] tel: [phone] [facility] No Information 2 No Information Offic/outpt E&m Estab Mod-pr 2 [facility] [place], [address], [place], [place], [id number] , [place] tel: [phone] [facility] cold symptoms (chief complaint) Fever and chillsInfluenza AInfluenza A 7 No Information Offic/outpt E&m [facility] [place] [facility] [place], [address], [place], [place], [id number] , [place] tel: [phone] [facility] allergies (chief complaint) Environmental and seasonal allergiesACUTE MAXILLARY SINUSITIS, UNSPECIFIEDACUTE BRONCHITIS, UNSPECIFIED ORGANISM 7 No Information Offic/outpt E&m Estab Mod-pr 2 [facility] [place], [address], [place], [place], [id number] , [place] tel: [phone] [facility] cold symptoms (chief complaint) Acute Uri NosOtalgia 3 No Information Offic/outpt E&m Estab Mod-hi 2 [facility] [place], [address], [place], [place], [id number] , [place] tel: [phone] [facility] cold symptoms (chief complaint) ALLERGIC RHINITIS NOS 3 No Information Offic/outpt E&m New Mod Sever [facility] [place], [address], [place], [place], [id number] , [place] tel:[phone] [facility] ear discomfort (chief complaint) No Information Aug-0 1 No Information Family History Family Member Type Diagnosis Age At Onset No Information Payers Payer name Insurance type Covered democrat ID Jaime woodall(s) Lynda [place] CI [id number] Social History Type Description Quantity Date Captured Comments Sex Female Smoking Status No Information Chief Complaint And Reason For Visit No Information Reason For Referral Reason For Referral No Information History Of Present Illness Encounter Date Complaint History Of Prese nt Illness No Information Functional Status Date Functional Assessmen t No Information Instructions Date Instruction Additional Infor mation No Information Assessments Type Assessment Date No Information Patient Care Teams Name Effective Dates (start - stop) Status Members No Information
--- OUTSIDE RECORDS SUMMARY | 2021-10-01 06:40 | XMS_ITS | Continuity of Care Document ---
Author Organization [facility] [place] Address [address] [place] [address] Phone Care Team Providers Care Family Welfare Social Work Professor Name Role Phone No Information Unavailable Unavailable [...] Rapid Immunoas; Flu Rapid Immunoas; Offic/outpt E&m [facility] Mod-ak 2 17 Offic/outpt E&m [facility] [place] 7 Service(s) provided in the office during regularly Offic/outpt E&m Estab Mod-ak 2 13 Services provided in an urgent care cent er Offic/outpt E&m Estab Mod-hi 2 13 Services provided in an urgent care [facility] er Offic/outpt E&m New Mod Sever 1 Service(s) provided in the office during regularly Services provided in an urgent care [facility] er Advance Directives Directive Yes / No Effective Date File Name No Information Encounters Encounter Description Practice Location Reason(s) For Visit Diagnoses Date Provider Providers Copied on Encounter [facility] [place], [address], [place], [place], [id number] , [place] tel: [phone] [facility] No Information 2 No Information Offic/outpt E&m Estab Mod-ak 2 [facility] [place], [address], [place], [place], [id number] , [place] tel: [phone] [facility] cold symptoms (chief complaint) Fever and chillsInfluenza AInfluenza A 7 No Information Offic/outpt E&m [facility] [place] [facility] [place], [address], [place], [place], [id number] , [place] tel: [phone] [facility] allergies (chief complaint) Environmental and seasonal allergiesACUTE MAXILLARY SINUSITIS, UNSPECIFIEDACUTE BRONCHITIS, UNSPECIFIED ORGANISM 7 No Information Offic/outpt E&m Estab Mod-ak 2 [facility] [place], [address], [place], [place], [id number] , [place] tel: [phone] [facility] cold symptoms (chief complaint) Acute Uri NosOtalgia 3 No Information Offic/outpt E&m Estab Mod-hi 2 [facility] [place], [address], [place], [place], [id number] , [place] tel: [phone] [facility] cold symptoms (chief complaint) ALLERGIC RHINITIS NOS 3 No Information Offic/outpt E&m New Mod Sever [facility] [place], [address], [place], [place], [id number] , [place] tel:[phone] [facility] ear discomfort (chief complaint) No Information Aug-0 1 No Information Family History Family Member Type Diagnosis Age At Onset No Information Payers Payer name Insurance type Covered constitution party ID Jaime woodall(s) Lynda [place] CI [id number] Social History Type Description Quantity Date Captured [...]
--- NOTE | ~2025-02-15 | XR_ITS ---
EXAMINATION: XR wrist RT min 3V, 02/15/2025 15:35 CDT HISTORY: fall X 1 MONTH, RT WRIST PAIN COMPARISON: No comparisons available. Findings: No acute fracture or malalignment. No significant degenerative changes. Soft tissues unremarkable. Impression: No acute fracture or malalignment. Reviewed, dictated and finalized at location A. Impression: No acute fracture or malalignment.
[2025-02-15 15:14] VITALS: BP 160/87; PULSE 76; RESP 16; TEMP 37; O2SAT 100
[2025-02-15 15:23] VITALS: BP 163/83; PULSE 74; RESP 14; TEMP 36.6; O2SAT 97
[2025-02-15 15:26] VITALS: BP 163/83; PULSE 75; RESP 14; TEMP 36.6; O2SAT 97
[2025-02-15 17:09] VITALS: BP 163/87; PULSE 78; RESP 15; O2SAT 97
--- NOTE | 2025-02-15 17:19 | ED_ITS ---
HPI - Extremity Injury (Upper) General Chief Complaint: Extremity Injury, Upper Stated Complaint: right wrist injury Time Seen by Provider: 02/15/25 16:03 Source: patient Mode of arrival: ambulatory Limitations: no limitations History of Present Illness HPI narrative: Patient is a 59-year-old female who presents the ED with report of right wrist pain. Patient reports she fell and attempted to catch herself with her right wrist 1.5 months ago, as well as 1 month ago. She has had persistent pain throughout her right wrist since then. Reports intermittent swelling. Reports intermittent tingling in her fingers. History of previous carpal tunnel with release. Denies numbness. Has not been taking anything for pain. Related Data Home Medications ?Medication ?Instructions ?Recorded ?Confirmed ?Last Taken ?Type No Home Medications 12/04/24 Unknown H istory Allergies Allergy/AdvReac Type Severity Reaction Status Date / Time Sulfa (Sulfonamide Allergy Hives Verified 02/15/25 15:27 Antibiotics) acetaminophen (From Vicodin) AdvReac Hallucinati Verified 02/15/25 15:27 ng hydrocodone (From Vicodin) AdvReac Hallucinati Verified 02/15/25 15:27 ng Review of Systems Review of Systems: All systems reviewed & are unremarkable except as noted in HPI. All systems reviewed & are unremarkable except as noted in HPI and below Exam Narrative: GENERAL: Well appearing, well-nourished, non-toxic, in no acute distress. HEAD: Normocephalic, atraumatic. RESPIRATORY: Airway patent, respirations nonlabored. CARDIOVASCULAR: Regular rate and rhythm. Radial pulses easily palpable MUSCULOSKELETAL: Moves all extremities. No gross deformities. Mild tenderness palpation over distal radius region. No snuffbox tenderness. Positive Phalen's test. SKIN: Warm, dry, normal color. NEURO: A&O X3. Speech clear. PSYCHIATRIC: Appropriate mood and affect. Normal interaction. Course Vital Signs Vital signs: Vital Signs Temperature 98.6 F 02/15/25 15:14 Pulse Rate 76 02/15/25 15:14 Respiratory Rate 16 02/15/25 15:14 Blood Pressure 160/87 H 02/15/25 15:14 Pulse Oximetry 100 02/15/25 15:14 Temperature 97.9 F 02/15/25 15:26 Pulse Rate 82 02/15/25 17:56 Respiratory Rate 17 02/15/25 17:56 Blood Pressure 143/70 H 02/15/25 17:56 Pulse Oximetry 97 02/15/25 17:56 Oxygen Delivery Room Air 02/15/25 15:23 MDM - Extremity Injury (Upper) MDM Narrative Medical decision making narrative: Patient?s injury is consistent with musculoskeletal etiology. No signs of neurologic or vascular compromise on physical examination. Compartments are soft without signs of compartment syndrome. XR negative. Pain is consistent with wrist sprain. Discussed possibility of recurrent carpal tunnel syndrome given positive Phalen's test today with paresthesias elicited in fingers. Patient is felt to be stable for discharge home and further outpatient management and treatment. Will refer to orthopedics. She reports she sees an regulatory law specialist in [place] where she spends half of the year. She is scheduled to see him soon. Recommended to contact about wrist sprain, continue rice therapy, otherwise safe for discharge home. Discussed return precautions. Discharged in stable condition. Medical Records Attestation: I reviewed the patient's medical records. Imaging Data Attestation: I personally reviewed and interpreted this imaging study as follows: Radiologist's impression: ITS Impressions Wrist X-Ray 02/15/25 15:57 Impression: No acute fracture or malalignment. Discharge Plan Discharge Clinical Impression: Strain of right wrist Qualifiers: Encounter type: initial encounter Qualified Code(s): S66.911A - Strain of unspecified muscle, fascia and tendon at wrist and hand level, right hand, initial encounter Patient Disposition: Home Condition: Stable Instructions: Antibiotic Form, Carpal Tunnel Syndrome (DC), Wrist Sprain (ED) Additional Instructions: Utilize velvet bandage for compression and support. Recommend frequent icing to wrist, limiting strenuous activity. Recommend Tylenol/ibuprofen as needed for pain. Follow-up with orthopedics for further evaluation. Return to the ED for new or worsening symptoms. Patient Language: Kiswahili Prescriptions: No Action No Home Medications Follow-up/Referrals: PHYSICIAN NOT ON STAFF,NONSTAFF [Primary Care Provider] Chad Schumacher MD [Physician, Orthopedics] Referral Note: ORTHOPEDICS Time of Disposition: 17:21
[2025-02-15 17:56] VITALS: BP 143/70; PULSE 82; RESP 17; O2SAT 97
== END 2025-02-15 17:58 | disposition home or self-care (01) ==
PROVIDERS: Emergency Provider Physician Assistant
DX: S66.911A Strain of unspecified muscle, fascia and tendon at wrist and hand level, right hand, initial encounter (principal); W18.30XA Fall on same level, unspecified, initial encounter
CPT/HCPCS: 73110; 99283